=== PATIENT | female | born 1955 | race African-American/Black ===

== ENCOUNTER → 2016-06-26 17:17 | Outpatient (CLI) | payer OTHER | END | disposition home or self-care (01) | LOC: D.MAMMO 06-25 16:00 | DX: Z12.31 Encounter for screening mammogram for malignant neoplasm of breast (principal) ==

== ENCOUNTER 2016-07-23 13:27 | Day surgery (SDC) | payer OTHER ==
[~2016-07-23] VITALS: Ht 152.4 cm; Wt 86.4 kg
[2016-07-23 14:23] LABS: BASOPHILS 0.5 % (0-2); EOSINOPHILS 1.7 % (0-7); HEMATOCRIT 41.6 % (36.0-48.0); HEMOGLOBIN 13.6 g/dL (12-16); IMMATURE GRANULOCYTES 0.2 % (0-5); LYMPHOCYTES 50.1 % (15-50); MCHC 32.7 g/dL (31.0-37.0); MCV 91.8 fL (80.0-100.0); MEAN PLATELET VOLUME 8.8 fL (7.4-10.4); NEUTROPHILS 40.5 % (40-80); PLATELET COUNT 317 10x3/uL (130-400); RBC 4.53 10x6/uL (4.00-5.40); RDW 13.5 % (11.5-14.5); WBC 6.6 10x3/uL (4.8-10.8)
[2016-07-23 14:44] LABS: ANION GAP 11.5 mmol/L (8-16); CARBON DIOXIDE 28.2 mmol/L (21.0-32.0); POTASSIUM - SERUM 3.7 mmol/L (3.5-5.1)
[2016-07-23] MEDS ORDERED: LEVOTHYROXINE150 MCG PO (15:06)
[2016-07-23] MEDS ORDERED: TEMOVATE 0.05%15 G1 TOPICAL (15:06)
[2016-07-23] MEDS ORDERED: FOLIC ACID1 MG PO (15:07)
[2016-07-23] MEDS ORDERED: BAYER CHEWABLE81 MG PO (15:07)
[2016-07-23] MEDS ORDERED: PREMARIN0.625 MG PO (15:08)
[2016-07-23 15:14] VITALS: BP 115/68; Ht 152.4 cm; Wt 86.4 kg
--- NOTE | 2016-07-23 18:10 | NUR ---
1745 IV DC WITH CATHER TIP INTACT
--- NOTE | 2016-07-29 19:32 | OP ---
PATIENT NAME: LAMAR ELKINS MEDICAL RECORD: [id number] LOCATION:[facility] ADMISSION DATE: SURGEON: SCOTT OLIVEIRA DO DATE OF OPERATION: 07/23/2016 PROCEDURE: Colonoscopy with hot forceps polypectomy. INDICATIONS: Screening colonoscopy. SCOPE: Olympus video pediatric colonoscope. MEDICATIONS: Propofol 420 mg IV per anesthesia, Versed 2 mg IV per anesthesia. WITHDRAWAL TIME: 9 minutes. ESTIMATED BLOOD LOSS: Minimal. COMPLICATIONS: None. FINDINGS: Informed consent was given. The patient was made comfortable with the above medication. After reaching an adequate level of sedation by slow IV push, the patient was placed on her left side. A digital rectal examination was performed and was normal. The endoscope was then advanced under direct visualization through the rectum to the cecum with visualization of the appendiceal orifice and ileocecal valve. The endoscope was slowly withdrawn and mucosa was carefully examined. There were 2 polyps visualized on this examination. The first was located in the distal transverse colon. It was benign appearing and sessile. It measured approximately 4 mm in diameter. It was removed using hot forceps in a single piece and completely retrieved. The second polyp was located in the rectum. It was benign appearing and sessile and measured approximately 4 mm in diameter. It was removed using a hot forceps in 1 piece and completely retrieved. There was evidence of moderate to severe diverticulosis of the sigmoid colon with a few scattered diverticuli visualized in the ascending and transverse colon. There were also internal hemorrhoids visualized on retroflexion in the rectum. There were small and nonbleeding. The endoscope was then withdrawn from the patient. The patient tolerated the procedure well and there were no complications. IMPRESSION: 1. Two polyps as described above, removed with hot forceps and completely retrieved. 2. Small, nonbleeding internal hemorrhoids. 3. Diverticulosis, mostly involving the sigmoid colon, but also scattered diverticuli throughout the colon. PLAN AND RECOMMENDATIONS: 1. Discharge home when recovery parameters are met. 2. High fiber diet. 3. Continue current medications. 4. Recall colonoscopy in 5 years pending pathology results. TRANSINT:[id number] Voice Confirmation ID: [id number] DOCUMENT ID: [id number] OPERATIVE REPORT [id number] LAMAR ELKINS SCOTT OLIVEIRA DO at 1932 CC: [id number] DICTATION DATE: 07/23/16 1715 VISUAL EDUCATOR: 07/23/16 2354 [facility] 07/23/16 [id number] [place] [address]
== END 2016-07-23 17:45 | disposition home or self-care (01) ==
LOC: D.OPS 13:27
PROVIDERS: Internal Medicine Gastroenterology
DX: Z12.11 Encounter for screening for malignant neoplasm of colon (principal); E03.9 Hypothyroidism, unspecified; E66.01 Morbid (severe) obesity due to excess calories; Z68.37 Body mass index [BMI] 37.0-37.9, adult; D12.3 Benign neoplasm of transverse colon; K62.1 Rectal polyp; K64.8 Other hemorrhoids; K57.90 Diverticulosis of intestine, part unspecified, without perforation or abscess without bleeding; Z01.812 Encounter for preprocedural laboratory examination

== ENCOUNTER → 2016-08-03 09:09 | Outpatient (CLI) | payer OTHER ==
[2016-07-23 15:14] VITALS: BMI 37.1
[~2016-08-03 09:09] MED LIST: BAYER CHEWABLE81 MG PO; FOLIC ACID1 MG PO; LEVOTHYROXINE150 MCG PO; PREMARIN0.625 MG PO; TEMOVATE 0.05%15 G1 TOPICAL
== END ==
LOC: D.MAMMO 09:09
DX: R92.8 Other abnormal and inconclusive findings on diagnostic imaging of breast (principal)

== ENCOUNTER 2017-08-30 08:00 | Outpatient (CLI) | payer OTHER ==
[2016-07-23 15:14] VITALS: BMI 37.1
== END 2017-08-30 10:33 | disposition home or self-care (01) ==
LOC: D.MAMMO 08:00
DX: M25.512 Pain in left shoulder (principal)

== ENCOUNTER → 2018-09-28 09:00 | Outpatient (CLI) | payer OTHER ==
[2016-07-23 15:14] VITALS: BMI 37.1
== END | disposition home or self-care (01) ==
LOC: D.MAMMO 09:00
PROVIDERS: ATTEND Family Medicine
DX: Z12.31 Encounter for screening mammogram for malignant neoplasm of breast (principal)